=== PATIENT | male | born 1960 | race Caucasian/White ===

== ENCOUNTER 2022-03-07 17:03 | Outpatient (REF) | payer MEDICARE, MEDICAID, SELFPAY ==
[2022-03-07 20:35] LABS: HCT 41.1 % (40.0-50.0); HGB 14.4 g/dL (13.5-17.5); MCH 31.4 pg (27.0-33.0); MCV 90 fL (80-95); MPV 11.8 fL (8.0-11.0); Platelet Count 167 10^3/uL (130-400); RBC 4.58 10^6/uL (4.36-5.78); RDW 11.7 % (11.8-14.1); RDW-SD 38.2 fL
[2022-03-07 20:52] LABS: ALT 37 U/L (16-63); AST 26 U/L (15-37); Albumin 4.5 g/dL (3.4-5.0); Alkaline Phosphatase 77 U/L (46-116); Anion Gap 8.7 mmol/L (3-11); BUN 25 mg/dL (7-18); Bilirubin, Total 0.5 mg/dL (0.2-1.0); CO2 26.3 mmol/L (21.0-32.0); CREATININE 1.1 mg/dL (0.70-1.30); Calcium 9.1 mg/dL (8.5-10.1); Calculated LDL 109 mg/dL (<100); Chloride 105 mmol/L (98-107); Cholesterol 169 mg/dL (<200); Glucose 94 mg/dL (74-106); HDL Cholesterol 39 mg/dL (40-60); Potassium 4.4 mmol/L (3.5-5.1); Sodium 140 mmol/L (136-145); Total Protein 7.4 g/dL (6.4-8.2); Triglyceride 108 mg/dL (<150)
[2022-03-10 09:43] LABS: PSA, Screening 0.8 ng/mL (<=4.5)
== END 2022-03-07 17:04 | disposition home or self-care (01) ==
LOC: NCHCN 17:03
PROVIDERS: PCP Internal Medicine; Visit Provider Family Medicine
DX: K70.30 Alcoholic cirrhosis of liver without ascites (principal); Z12.5 Encounter for screening for malignant neoplasm of prostate
CPT/HCPCS: 80053; 80061; 84153; 85027

== ENCOUNTER 2023-03-23 18:35 | Outpatient (REF) | payer MEDICARE, MEDICAID, SELFPAY ==
[2023-03-23 21:04] LABS: HCT 40.9 % (40.0-50.0); HGB 14.7 g/dL (13.5-17.5); MCH 31.8 pg (27.0-33.0); MCHC 35.9 % (32.0-36.0); MCV 89 fL (80-95); MPV 11.1 fL (8.0-11.0); Platelet Count 199 10^3/uL (130-400); RBC 4.62 10^6/uL (4.36-5.78); RDW-SD 38.9 fL; WBC 6.41 10^3/uL (4.4-10.8)
[2023-03-23 21:17] LABS: ALT 40 U/L (16-63); AST 33 U/L (15-37); Albumin 4.1 g/dL (3.4-5.0); Alkaline Phosphatase 77 U/L (46-116); Anion Gap 5.2 mmol/L (3-11); BUN 23 mg/dL (7-18); Bilirubin, Total 0.6 mg/dL (0.2-1.0); CO2 27.8 mmol/L (21.0-32.0); CREATININE 1.3 mg/dL (0.70-1.30); Calcium 9.3 mg/dL (8.5-10.1); Chloride 105 mmol/L (98-107); Glucose 96 mg/dL (74-106); Potassium 4.3 mmol/L (3.5-5.1); Sodium 138 mmol/L (136-145)
== END 2023-03-23 18:36 | disposition home or self-care (01) ==
LOC: NCHCN 18:35
PROVIDERS: PCP Internal Medicine; Visit Provider Family Medicine
DX: K70.30 Alcoholic cirrhosis of liver without ascites (principal)
CPT/HCPCS: 80053; 85027